=== PATIENT | male | born 1990 | race African-American/Black ===

== ENCOUNTER 2018-05-05 17:11 | Emergency (ER) | payer SELFPAY ==
[~2018-05-05] VITALS: Ht 175.2 cm; Wt 68.0 kg
[2018-05-05] MEDS ORDERED: Motrin,Rufen800 MG PO (18:00)
[2018-05-05] MEDS ORDERED: AUGMENTIN 875875 MG PO (18:00)
== END 2018-05-05 18:14 | disposition home or self-care (01) ==
LOC: ED 17:11
DX: S01.511A Laceration without foreign body of lip, initial encounter (principal); S60.511A Abrasion of right hand, initial encounter; F17.200 Nicotine dependence, unspecified, uncomplicated; W54.0XXA Bitten by dog, initial encounter; Y93.89 Activity, other specified; Y92.098 Other place in other non-institutional residence as the place of occurrence of the external cause; Y99.8 Other external cause status